=== PATIENT | female | born 1975 | race Caucasian/White ===

== ENCOUNTER 2018-11-24 14:37 | Emergency (ER) | payer SELFPAY ==
--- NOTE | 2018-11-24 16:05 | C.PDOC ---
History Of Present Illness 43 year old male is brought to the ED by ambulance for apparent public intoxication noted prior to arrival. Upon ED arrival, patient is uncooperative and noncompliant with assessment, stating she does not trust the ED staff. Manager Medicaid was used. As per patient's boyfriend's sister, patient was acting odd today. She denies known psychiatric history on patient's behalf. As per the sister, patient came over to help her clean and then she left. As per EMS, patient apparently walked a lengthy distance in the streets and became bel ligerent with someone who tried helping her, who then called EMS and police. Upon their arrival, patient wandered into the traffic. Patient does not offer any complaints at this time. Additional information limited secondary to patient being noncompliant. Time Seen by Provider: 11/24/18 14:55 Chief Complaint (Nursing): Substance Abuse History Per: EMS History/Exam Limitations: intoxication Current Symptoms Are (Timing): Still Present Modifying Factor(s): Alcohol Past Medical History Reviewed: Historical Data, Nursing Documentation, Vital Signs Vital Signs: Last Vital Signs Temp 99.1 F 11/24/18 15:00 Pulse 92 H 11/24/18 15:00 Resp 20 11/24/18 15:00 BP 158/101 H 11/24/18 15:00 Pulse Ox 95 11/24/18 15:00 - Medical History PMH: No Chronic Diseases Surgical History: No Surg Hx Family History: States: Unknown Family Hx - Social History Hx Alcohol Use: No Hx Substance Use: No Review Of Systems Review Of Systems: ROS cannot be obtained secondary to pt's inabilty to answer questions. Physical Exam - Physical Exam Appears: Non-toxic, No Acute Distress, Unkempt Skin: Warm, Dry, Other (many abrasions to bilateral upper extremities) Head: Atraumatic, Normacephalic Eye(s): bilateral: Normal Inspection Oral Mucosa: Moist Neck: Supple Chest: Symmetrical, No Deformity, No Tenderness Cardiovascular: Rhythm Regular, No Murmur Respiratory: Normal Breath Sounds, No Rales, No Rhonchi, No Wheezing Extremity: Normal ROM, Capillary Refill (less than 2 seconds ), Other (chronic swelling appearance to bilateral hands ) Neurological/Psych: Oriented x3, Normal Speech, Normal Cognition ED Course And Treatment O2 Sat by Pulse Oximetry: 95 Disposition - Disposition Disposition: HOME/ ROUTINE Disposition Time: 16:47 Condition: GUARDED Instructions: Alcohol Abuse and Alcoholism (DC) Forms: [facility] ([facility]), General Discharge Instructions - POA Present On Arrival: None - Clinical Impression Clinical Impression: Alcohol abuse - Scribe Statement The provider has reviewed the documentation as recorded by the Scribe (Mirella Ramirez) Provider Attestation: All medical record entries made by the Scribe were at my direction and personally dictated by me. I have reviewed the chart and agree that the record accurately reflects my personal performance of the history, physical exam, medical decision making, and the department course for this patient. I have also personally directed, reviewed, and agree with the discharge instructions and disposition.
[2018-11-24 18:11] VITALS: BP 158/92; PULSE 86; RESP 18; TEMP 99; O2SAT 96
== END 2018-11-24 17:00 | disposition home or self-care (01) ==
LOC: C.ER 14:37
DX: F10.10 Alcohol abuse, uncomplicated (principal); Y90.9 Presence of alcohol in blood, level not specified